=== PATIENT | female | born 1975 | race Caucasian/White ===

== ENCOUNTER 2016-08-06 00:41 | Emergency (ER) | payer OTHER ==
[2016-08-06 00:40] VITALS: O2SAT 97
[~2016-08-06 00:41] MED LIST: ALBU1AER INH; BACT800T5 PO; PERM5CRE4 TOP
[2016-08-06] MEDS ORDERED: RESP: ALBUTEROL 2.5 MG/IPRATROPIUM 0.5 MG NEB (SCH) ONE (00:44)
[2016-08-06 00:45] VITALS: BP 147/89; PULSE 95; RESP 22; TEMP 97.8; O2SAT 93
[2016-08-06] MEDS ORDERED: DEXAMETHASONE SOD PHOS 4 MG/ML VIAL IM ONE (00:45)
[2016-08-06 00:48] VITALS: RESP 18; O2SAT 100
[2016-08-06] MEDS: RESP: ALBUTEROL 2.5 MG/IPRATROPIUM 0.5 MG NEB (SCH) INH ×2 (00:48→00:49)
--- NOTE | 2016-08-06 01:14 | RADRPT ---
EXAM DATE/TIME: 08/06/2016 00:58 [place] COMPARISON: CHEST SINGLE AP, June 02, 2015, 8:52. INDICATIONS : Shortness of breath. MEDICAL HISTORY : None. SURGICAL HISTORY : None. ENCOUNTER: Initial ACUITY: 2 days PAIN SCORE: 0/10 LOCATION: Bilateral chest FINDINGS: A single view of the chest demonstrates the lungs to be symmetrically aerated without evidence of mas s, infiltrate or effusion. The cardiomediastinal contours are unremarkable. Osseous structures are intact. CONCLUSION: No acute disease. Theodore Barrett Jr., MD on August 06, 2016 at 1:12 Board Certified Radiologist. This report was verified electronically.
[2016-08-06] MEDS ORDERED: BACT800T5 PO (01:39)
[2016-08-06] MEDS ORDERED: BACT2OIN TOPICAL (01:39)
[2016-08-06] MEDS ORDERED: ALBU0.08 NEB (01:39)
[2016-08-06] MEDS ORDERED: IPRA0.02 NEB (01:39)
[2016-08-06] MEDS ORDERED: NEBUKIT5 (01:39)
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
== END 2016-08-06 02:07 | disposition home or self-care (01) ==
LOC: NEPE 00:41
DX: J44.1 Chronic obstructive pulmonary disease with (acute) exacerbation (principal); L73.9 Follicular disorder, unspecified; J45.909 Unspecified asthma, uncomplicated; Z72.0 Tobacco use
CPT/HCPCS: 71010; 94640; 94664; 96372; 99283; J1100

== ENCOUNTER 2016-10-10 01:58 | Emergency (ER) | payer OTHER ==
[~2016-10-10] VITALS: Ht 162.6 cm; Wt 65.0 kg
[~2016-10-10 01:58] MED LIST changes: +ALBU0.08 NEB; -ALBU1AER INH; +BACT2OIN TOPICAL; +IPRA0.02 NEB; +NEBUKIT5; -PERM5CRE4 TOP
[2016-10-10 02:00] VITALS: BP 138/81; PULSE 98; RESP 24; TEMP 98.8; O2SAT 98
[2016-10-10] MEDS ORDERED: SPIRCAP INH (02:18)
[2016-10-10] MEDS ORDERED: ADVA500A INH (02:18)
[2016-10-10] MEDS ORDERED: CYCL1TAB29 PO (02:19)
[2016-10-10] MEDS ORDERED: BUPR150CR PO (02:19)
[2016-10-10] MEDS ORDERED: VENTAER INH (02:19)
[2016-10-10] MEDS ORDERED: LORA-475 PO (02:19)
== END 2016-10-10 02:50 | disposition left against medical advice (07) ==
LOC: NED 01:58
DX: R06.02 Shortness of breath (principal)
CPT/HCPCS: 99281

== ENCOUNTER 2016-12-15 16:21 | Emergency (ER) | payer OTHER ==
[~2016-12-15] VITALS: Ht 162.6 cm; Wt 63.0 kg
[~2016-12-15 16:21] MED LIST changes: +ADVA500A INH; -BACT2OIN TOPICAL; -BACT800T5 PO; +BUPR150CR PO; +CYCL1TAB29 PO; +LORA-475 PO; -NEBUKIT5; +SPIRCAP INH; +VENTAER INH
[2016-12-15 16:23] VITALS: BP 149/81; PULSE 99; RESP 34; TEMP 98.1; O2SAT 99
[2016-12-15 16:27] VITALS: RESP 34; O2SAT 98
[2016-12-15] MEDS ORDERED: predniSONE 20 MG TAB PO ONE (16:30)
[2016-12-15] MEDS: RESP: ALBUTEROL 2.5 MG/IPRATROPIUM 0.5 MG NEB (SCH) INH (16:38)
[2016-12-15 16:39] VITALS: O2SAT 99
[2016-12-15] MEDS ORDERED: PRED20 PO (16:58)
[2016-12-15] MEDS ORDERED: VENTAER INH (16:58)
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
[2016-12-15 17:35] VITALS: BP 120/84; TEMP 97.8
== END 2016-12-15 17:35 | disposition home or self-care (01) ==
LOC: NEPE 16:21
DX: J44.1 Chronic obstructive pulmonary disease with (acute) exacerbation (principal); F32.9 Major depressive disorder, single episode, unspecified; F17.210 Nicotine dependence, cigarettes, uncomplicated; Z79.51 Long term (current) use of inhaled steroids; Z79.52 Long term (current) use of systemic steroids; Z79.899 Other long term (current) drug therapy
CPT/HCPCS: 94640; 94664; 99285; J7512

== ENCOUNTER 2016-12-29 22:10 | Emergency (ER) | payer OTHER ==
[~2016-12-29] VITALS: Ht 162.6 cm; Wt 65.0 kg
[~2016-12-29 22:10] MED LIST changes: +PRED20 PO
[2016-12-29 22:14] VITALS: BP 140/91; PULSE 99; RESP 22; TEMP 98.3; O2SAT 99
[2016-12-29 22:26] VITALS: PULSE 93; RESP 16; O2SAT 100
[2016-12-29] MEDS ORDERED: ADVA500A INH (22:27)
[2016-12-29] MEDS ORDERED: VENTAER INH (22:27)
[2016-12-29] MEDS ORDERED: IPRA0.02 NEB (22:27)
[2016-12-29] MEDS ORDERED: SPIRCAP INH (22:27)
[2016-12-29] MEDS ORDERED: ALBU0.08 NEB (22:27)
[2016-12-29] MEDS ORDERED: NEBULIZER1 MI1 (22:28)
[2016-12-29] MEDS ORDERED: MUPI2%T TOPICAL (22:29)
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
[2016-12-29 23:12] VITALS: BP 130/79
== END 2016-12-29 23:16 | disposition home or self-care (01) ==
LOC: NEPE 22:10
DX: J41.0 Simple chronic bronchitis (principal); F17.210 Nicotine dependence, cigarettes, uncomplicated
CPT/HCPCS: 99283

== ENCOUNTER 2017-06-28 05:23 | Emergency (ER) | payer OTHER ==
[~2017-06-28] VITALS: Ht 162.6 cm; Wt 70.0 kg
[~2017-06-28 05:23] MED LIST changes: +CYCL10TA PO; -CYCL1TAB29 PO; +MUPI2%T TOPICAL; +NEBULIZER1 MI1
[2017-06-28 05:31] VITALS: BP 100/60; PULSE 95; RESP 20; TEMP 99.6; O2SAT 100
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
[2017-06-28] MEDS ORDERED: SULFAMETHOXAZOLE-TRIMETHOPRIM DS 800-160 MG TAB PO ONE (06:15)
[2017-06-28] MEDS ORDERED: CEPHALEXIN MONOHYDRATE 500 MG CAP PO ONE (06:15)
[2017-06-28] MEDS ORDERED: ceFAZolin 2 GM PREMIX 50 ML IV ONE (06:15)
[2017-06-28] MEDS ORDERED: RESP: ALBUTEROL 2.5 MG/IPRATROPIUM 0.5 MG NEB (SCH) NEB ONE (06:15)
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
--- NOTE | 2017-06-28 06:56 | RADRPT ---
EXAM DATE/TIME: 06/28/2017 06:14 [facility] COMPARISON: CHEST SINGLE AP, August 06, 2016, 0:58. INDICATIONS : General illness with multi body pains. MEDICAL HISTORY : None. SURGICAL HISTORY : None. ENCOUNTER: Initial ACUITY: 1 day PAIN SCORE: 10/10 LOCATION: Bilateral body FINDINGS: A single view of the chest demonstrates the lungs to be symmetrically aerated without evidence of mas s, infiltrate or effusion. The cardiomediastinal contours are unremarkable. Osseous structures are intact. CONCLUSION: No acute disease. Edwin Hook MD on June 28, 2017 at 6:53 Board Certified Radiologist. This report was verified electronically.
[2017-06-28] MEDS ORDERED: BACT800T5 PO (07:07)
[2017-06-28] MEDS ORDERED: CEPH-460 PO (07:07)
[2017-06-28] MEDS ORDERED: VENTAER INH (07:07)
== END 2017-06-28 07:40 | disposition home or self-care (01) ==
LOC: NEPE 05:23
DX: L03.032 Cellulitis of left toe (principal); B95.8 Unspecified staphylococcus as the cause of diseases classified elsewhere; S00.83XA Contusion of other part of head, initial encounter; J43.9 Emphysema, unspecified; F17.210 Nicotine dependence, cigarettes, uncomplicated; W22.8XXA Striking against or struck by other objects, initial encounter; Y93.01 Activity, walking, marching and hiking; Y92.410 Unspecified street and highway as the place of occurrence of the external cause
CPT/HCPCS: 70450; 70486; 71045; 72125; 94664

== ENCOUNTER 2017-08-12 16:34 | Emergency (ER) | END 2017-08-12 18:36 | disposition left against medical advice (07) | DX: M79.605 Pain in left leg (principal) ==

== ENCOUNTER 2017-09-14 08:54 | Emergency (ER) | payer OTHER ==
[~2017-09-14] VITALS: Ht 167.6 cm; Wt 55.0 kg
[~2017-09-14 08:54] MED LIST changes: +BACT800T5 PO; +CEPH-460 PO
[2017-09-14 09:25] VITALS: BP 135/81; PULSE 88; RESP 18; TEMP 98.3; O2SAT 96
[2017-09-14] MEDS ORDERED: BACT800T5 PO (09:27)
[2017-09-14] MEDS ORDERED: PRED20 PO (09:27)
[2017-09-14] MEDS ORDERED: SPIRCAP INH (09:27)
[2017-09-14] MEDS ORDERED: ADVA500A INH (09:27)
[2017-09-14] MEDS ORDERED: ALBU0.08 NEB (09:27)
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
[2017-09-14] MEDS ORDERED: predniSONE 50 MG TAB PO ONE (09:30)
[2017-09-14] MEDS ORDERED: ALBUTEROL SULFATE 90 MCG/ACT HFA 8 GM INHALER INH ONE (09:30)
== END 2017-09-14 10:37 | disposition home or self-care (01) ==
LOC: NEPD 08:54
DX: J44.1 Chronic obstructive pulmonary disease with (acute) exacerbation (principal); L01.00 Impetigo, unspecified; J45.909 Unspecified asthma, uncomplicated; F32.9 Major depressive disorder, single episode, unspecified; Z79.51 Long term (current) use of inhaled steroids; Z79.899 Other long term (current) drug therapy; Z88.1 Allergy status to other antibiotic agents; F17.210 Nicotine dependence, cigarettes, uncomplicated
CPT/HCPCS: 99283

== ENCOUNTER 2017-09-16 13:20 | Emergency (ER) | payer OTHER ==
[~2017-09-16] VITALS: Ht 162.6 cm; Wt 64.0 kg
[2017-09-16 13:36] VITALS: BP 121/76; PULSE 78; RESP 20; TEMP 97.7; O2SAT 97
[2017-09-16] MEDS ORDERED: SODIUM CHLORIDE 0.9% FLUSH 10 ML FLUSH IVF PRN (13:45)
[2017-09-16] MEDS ORDERED: SODIUM CHLOR 0.9% 1000 ML INJ 1,000 ML IV ONE (13:45)
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
[2017-09-16] MEDS: RESP: ALBUTEROL 2.5 MG/IPRATROPIUM 0.5 MG NEB (SCH) INH ×3 (13:49→13:53)
[2017-09-16] MEDS ORDERED: SULFAMETHOXAZOLE-TRIMETHOPRIM DS 800-160 MG TAB PO ONE (14:00)
[2017-09-16 14:21] LABS: AUTOMATED NEUTROPHIL # 2.3 TH/MM3 (1.8-7.7); BASOPHIL % 0.7 % (0.0-2.0); EOSINOPHIL # 0.6 TH/MM3 (0-0.4); EOSINOPHIL % 9.9 % (0.0-4.0); HEMATOCRIT 41.2 % (35.0-46.0); HEMOGLOBIN 13.6 GM/DL (11.6-15.3); LYMPH % 34.6 % (9.0-44.0); LYMPHOCYTE # 1.9 TH/MM3 (1.0-4.8); MEAN CELL VOLUME 83.4 FL (80.0-100.0); MEAN CORPUSCULAR HEMOGLOBIN 27.6 PG (27.0-34.0); MEAN CORPUSCULAR HGB CONC 33.1 % (32.0-36.0); MEAN PLATELET VOLUME 7.8 FL (7.0-11.0); MONO % 12.8 % (0.0-8.0); MONOCYTE # 0.7 TH/MM3 (0-0.9); PLATELET COUNT 303 TH/MM3 (150-450); RED BLOOD COUNT 4.94 MIL/MM3 (4.00-5.30); RED CELL DISTRIBUTION WIDTH 13.8 % (11.6-17.2); WHITE BLOOD COUNT 5.6 TH/MM3 (4.0-11.0)
--- NOTE | 2017-09-16 14:28 | RADRPT ---
EXAM DATE: 09/16/2017 2:07 PM EDT AGE/SEX: 41 years / Female INDICATIONS: Short of breath CLINICAL DATA: This is the patient's initial encounter. Patient reports that signs and symptoms have been present for 1 day and indicates a pain score of 0/10. MEDICAL/SURGICAL HISTORY: Asthma. None. COMPARISON: [facility], CHEST SINGLE AP, 06/28/2017. . FINDINGS: A single AP view of the chest demonstrates the lungs to be symmetrically aerated without evidence of mass, infiltrate or effusion. The cardiomediastinal contours are unremarkable. Osseous structures a re intact. CONCLUSION: No acute cardiopulmonary findings. Electronically signed by: Shukri Umana MD 09/16/2017 2:27 PM EDT
[2017-09-16 14:36] LABS: AMORPHOUS SEDIMENT, URINE FEW; BACTERIA, URINE FEW /hpf; BILIRUBIN, URINE NEG (NEG); BLOOD, URINE SMALL (NEG); CALCIUM OXALATE CRYSTALS,URINE OCC /hpf; GLUCOSE,URINE NEG (NEG); KETONE, URINE NEG (NEG); MUCUS URINE FEW /lpf (OCC); NITRITE,URINE NEG (NEG); SQUAMOUS EPITHELIAL CELL URINE 2 /hpf (0-5); URINE COLOR Amber (YELLW/STRAW); URINE LEUKOCYTE ESTERASE MOD (NEG); WHITE BLOOD CELL CLUMPS FEW
[2017-09-16 14:43] LABS: ALBUMIN 2.8 GM/DL (3.4-5.0); BICARBONATE 25.1 MEQ/L (21.0-32.0); BLOOD UREA NITROGEN 9 MG/DL (7-18); CALCIUM 8.1 MG/DL (8.5-10.1); CHLORIDE 109 MEQ/L (98-107); CREATININE 0.68 MG/DL (0.50-1.00); GLOMERULAR FILTRATION RATE 95 ML/MIN (>89); GLUCOSE,RANDOM 113 MG/DL (74-106); SODIUM (NA) 143 MEQ/L (136-145)
[2017-09-16 14:44] LABS: AST (GOT) 46 U/L (15-37)
[2017-09-16 14:45] LABS: ALKALINE PHOSPHATASE 80 U/L (45-117); ALT (GPT) 23 U/L (10-53); TOTAL BILIRUBIN ADULT 0.6 MG/DL (0.2-1.0); TOTAL PROTEIN 6.5 GM/DL (6.4-8.2)
[2017-09-16] MEDS ORDERED: BACT800T5 PO (15:12)
[2017-09-16] MEDS ORDERED: VENTAER INH (15:12)
[2017-09-16] MEDS ORDERED: PRED20 PO (15:12)
[2017-09-16 15:33] VITALS: BP 121/63
== END 2017-09-16 15:34 ==
LOC: NEPC 13:20
DX: J44.1 Chronic obstructive pulmonary disease with (acute) exacerbation (principal); L03.90 Cellulitis, unspecified; A49.02 Methicillin resistant Staphylococcus aureus infection, unspecified site; F17.210 Nicotine dependence, cigarettes, uncomplicated; Z59.0 Homelessness; Z88.1 Allergy status to other antibiotic agents
CPT/HCPCS: 71045; 80053; 80307; 81001; 85025; 87086; 94640; 94664; 96360; 99284; J7030